=== PATIENT | female | born 1960 | race Caucasian/White ===

== ENCOUNTER 2024-06-18 14:04 | Outpatient (AMB) | payer MEDICARE, SELFPAY ==
--- NOTE | 2024-06-18 14:13 | MHC.OFFVIS ---
Vital Signs 06/18/24 14:20 Height 5 ft 7 in Weight 179 lb 8 oz BMI 28.1 BP 145/72 H Blood Pressure Location Rt brachial Position Sitting Pulse 70 Pulse Source Pulse Oximeter Pulse Oximetry (%) 97 Oxygen Delivery Method Room Air Intake Visit Reasons: Chronic Pain Allergies amoxicillin [From Augmentin] Allergy (Unknown, Verified 06/18/24 14:45) Anaphylaxis clavulanic acid [From Augmentin] Allergy (Unknown, Verified 06/18/24 14:45) Anaphylaxis lisinopril Allergy (Unknown, Verified 06/18/24 14:45) Unknown Penicillins Allergy (Unknown, Verified 06/18/24 14:45) Unknown prednisone Allergy (Unknown, Verified 06/18/24 14:45) steroid psychosis quetiapine [From Seroquel] Allergy (Unknown, Verified 06/18/24 14:45) Unknown HPI Comments Details: The patient is a 64-year-old female presenting with chronic low back pain, first initiating in [id number] due to a sacroiliac joint injury. Initial management at [facility] included SI injections and epidural steroid injections that were subsequently discontinued after evidence of neutropenia. Pain symptoms include radiating discomfort to the left buttock and groin with cramping, pinching, and locking sensations. Other associated symptoms include difficulty sleeping and chronic fatigue worsened by anxiety and depression, affecting her activities of daily living. Denies any fever or chills, unintentional weight loss or night sweats, weakness, bladder or bowel dysfunction or saddle anesthesia. Currently, she is getting over inner ear infection which causes her transient dizziness with bending down. Further complicating the clinical picture are complaints of restless leg syndrome worsened by medication adjustments in the hospital, and historical reliance on self-medication through alcohol which resolved in 2007. She also checked herself in to [facility] in the past for opioid dependence on Fentanyl patch and other opioids for 7 years. Her medical history includes lumbar degenerative disc disease, chronic low back pain, left SI joint pain, RLS, PAD, anxiety, depression, PTSD and insomnia, affecting sleep and psychological wellbeing. Prior radiographic studies indicated spinal changes, and her current management focuses on balancing pain relief without steroid injections, due to past adverse psychological reactions and neutropenia. She reports normal neutrophils levels with recent lab work through her PCP office. Patient reports hospitalizations started in 2018 due to chronic low back pain and neutropenia and since then she reports being hospitalized up to 20 times, with last stay in February 2024. She also reports surgical excision due to a very bad neutropenic skin ulcer with infection with necrosis in a private area per patient. - Onset and Timing: Initiated in [id number]. - Quality and Character: Cramping, pinching, and crushing. Pain is 3-10/10, worse with movements and least severe with resting or heat. - Primary Location: Left side above the lower back. - Areas of Radiation: Radiates to left buttock and groin. - Exacerbating Factors: Walking, turning over in bed, cold weather, bending, standing. - Relieving Factors: Heat pad, Duloxetine, Clonazepam, Oxycodone, Tylenol, Ibuprofen (rarely) - Functional Interference: Impaired sleep, exhaustion, limited mobility, reliance on sister for household tasks. Sometimes she uses cane or walker. - Affect: Pain leads to exhaustion, depression, and anxiety. - Analgesia: Currently using Oxycodone 10 mg; reports avoiding gabapentin. Pain levels interfere with sleep, and there is a desire for opioid-sparing therapies. - Adverse Effects: Historical adverse psychiatric reactions to steroids. - Activities of Daily Living: Restricted mobility and sleep; relies on external support for housework. - Aberrant Drug-Related Behaviors: Previously managed alcohol self-medication; ceased in 2007. History of opioid dependence (Fentanyl patch x7 years) with inpatient treatment in [facility]. [facility] Medical History (Updated 06/18/24 @ 15:29 by LENNOX Kahn) Neutropenia Panic attacks Anxiety Insomnia Type 2 diabetes mellitus PTSD (post-traumatic stress disorder) Hypertension Hyperlipidemia Chronic pain disorder Bipolar disorder Alcohol abuse Opioid dependence OCD (obsessive compulsive disorder) Surgical History (Updated 06/18/24 @ 15:29 by LENNOX Kahn) History of surgical removal of skin lesion Review of Systems Const Details: - Cardiovascular: Reports peripheral arterial disease. - Musculoskeletal: Reports pain exacerbated by movement; right leg shorter. - Neurological: Reports restless leg syndrome, prior managed with ropinirole, currently on clonazepam. - Psychological: Reports depression, anxiety, insomnia, restless leg syndrome. - Hematologic: Denies current neutropenia. - Sleep: Disturbed due to pain; reports severe fatigue. All systems reviewed & are unremarkable except as noted in HPI and below Physical Exam Vital Signs: Last Vital Signs Pulse 70 06/18/24 14:20 BP 145/72 H 06/18/24 14:20 Pulse Ox 97 06/18/24 14:20 Oxygen Delivery Method Room Air 06/18/24 14:20 BMI result Body Mass Index 28.1 General: Appears afebrile. No acute distress. Alert and oriented. Mood and affect appropriate. Follows and participates in conversation appropriately. Respiratory effort is unlabored. No cough. No nasal discharge. Able to transition from sit to stand unassisted. Ambulates with bilaterally normal heel strike and toe off. General: Yes no CVA tenderness Back/Spine/Pelvis Other: Patient is able to walk and stand on heels and tip toes with no difficulties demonstrating good motor tone. No limping. Can flex forward to 80-90 degrees, able to touch the floor and extend to 10-15 degrees before experiencing lumbar pain. Demonstrates 5/5 strength of quadriceps bilaterally as well as flexion/dorsiflexion of bilateral feet against resistance. 2+ pedal pulses bilaterally. Straight leg rise with dorsiflexion negative bilaterally. +2 patellar and achilles reflexes bilaterally. Facet loading test positive bilaterally. Andrea sign, Hay?s, Gaenslen, Pelvic compression and Stinchfield tests are positive on the left, equivocal on the right. Minimal groin pain with left I/E hip rotations. Valsalva maneuver negative. Noted discrepancy in leg length; right leg shorter. Back: no CVA tenderness Cervical Spine: cervical ROM normal, cervical muscular tenderness and No Cervical spine tenderness Thoracic/Lumbar Spine: thoracic and lumbar spine normal to inspection, No Thoracic/lumbar spine scar(s), Lasegue's sign negative, straight leg raise negative bilaterally, pain with thoraco-lumbar ROM, paraspinal muscle tenderness, thoraco-lumbar ROM limited, No thoracic spinal tenderness and lumbar spinal tenderness (L4-S1) Pelvis: buttock tenderness on the left and no sciatic notch tenderness Sacroiliac joints: bilaterally (left>right) tender to palpation Skin Other: Neuropenic skin lesions and ulcers at various healing stages of upper and lower extremities, no skin rash or lesions on back or torso. Extrem General: Yes capillary refill normal, Yes no clubbing, cyanosis or edema and Yes no calf tenderness Results Reviewed Results Reviewed: No imaging reports are available for review today. Assessment & Plan Assessment & Plan (1) Lumbar degenerative disc disease: Code(s): M51.369 - Other intervertebral disc degeneration, lumbar region without mention of lumbar back pain or lower extremity pain Category: Medical (2) Chronic sacroiliac joint pain: Code(s): M53.3 - Sacrococcygeal disorders, not elsewhere classified; G89.29 - Other chronic pain Category: Medical (3) Chronic low back pain: Code(s): M54.50 - Low back pain, unspecified; G89.29 - Other chronic pain Category: Medical (4) Opioid dependence: Code(s): F11.20 - Opioid dependence, uncomplicated Category: Medical Plan The plan includes updating imaging with x-rays of the sacroiliac joints and lumbar spine, potential insurance evaluation for radiofrequency ablation and pursuing diagnostic injections. We also reviewed neuromodulation, including Sprint PNS trial, patient is hesitant towards temporary or permanent implants, especially given recent history of neutropenia. Emphasis will be placed on non-steroid, opioid-sparing and non-opioid analgesia options considering the patient's adverse reaction to steroids. Maintaining Duloxetine and opioid therapy for pain and mood management continues per PCP, as does Clonazepam for psychiatric symptoms and restless leg syndrome. Review of [facility] records and coordination with primary care for ongoing management and potential Chiropractic therapy for leg length discrepancy will be pursued. All questions and concerns have been answered and patient agreed with the treatment plan. Follow up for xray results and sooner as needed. Patient was informed and verbally consented to the use of an ambient scribe for clinic note documentation during this visit. Orders: Orders XR lumbar spine 4V min Today G89.29 - Other chronic pain, M51.369 - Other intervertebral disc degeneration, lumbar region without mention of lumbar back pain or lower extremity pain, M53.3 - Sacrococcygeal disorders, not elsewhere classified, M54.50 - Low back pain, unspecified XR sacroiliac joint min 3V Today G89.29 - Other chronic pain, M51.369 - Other intervertebral disc degeneration, lumbar region without mention of lumbar back pain or lower extremity pain, M53.3 - Sacrococcygeal disorders, not elsewhere classified, M54.50 - Low back pain, unspecified Patient Instructions: - Schedule x-ray for sacroiliac joints and lumbar spine. - Continue current medications as prescribed. - Report any severe increase in pain or mobility restriction. - Engage in approved physical exercises and stretches. Consider Chiropractic therapy for leg discrepancy. - Use non-drug methods for pain relief such as heat pads. - Maintain regular hydration, sleep hygiene, well balanced diet and stress management. - Consult with your psychiatrist as planned to manage anxiety, depression, insomnia and high stress levels. - Follow up for xray results/[facility] records review and sooner as needed. Coding Level of Care Code New Pt Level 4 (47831) Complex EM visit Add On G2211 Diagnoses Lumbar degenerative disc disease M51.369 Chronic sacroiliac joint pain M53.3; G89.29 Chronic low back pain M54.50; G89.29 Opioid dependence F11.20
[2024-06-18 14:20] VITALS: BP 145/72; PULSE 70; O2SAT 97; BMI 28.1
== END 2024-06-18 14:52 | disposition home or self-care (01) ==
LOC: HO.PMC 14:05
PROVIDERS: PCP Internal Medicine; Referring Provider Physician Assistant Medical; Visit Provider Nurse Practitioner Family
DX: M51.369 Other intervertebral disc degeneration, lumbar region without mention of lumbar back pain or lower extremity pain (principal); M53.3 Sacrococcygeal disorders, not elsewhere classified; G89.29 Other chronic pain; M54.50 Low back pain, unspecified
CPT/HCPCS: 99204; G2211

== ENCOUNTER → 2024-06-18 14:04 | Outpatient (BNVA) | payer MEDICARE, SELFPAY | PROVIDERS: PCP Internal Medicine; Referring Provider Physician Assistant Medical; Visit Provider Nurse Practitioner Family | DX: G89.29 Other chronic pain (principal); M51.369 Other intervertebral disc degeneration, lumbar region without mention of lumbar back pain or lower extremity pain; M53.3 Sacrococcygeal disorders, not elsewhere classified; M54.50 Low back pain, unspecified; F11.20 Opioid dependence, uncomplicated | CPT/HCPCS: 99202 ==

== ENCOUNTER 2024-09-04 08:29 | Outpatient (REF) | payer MEDICARE, SELFPAY ==
--- NOTE | ~2024-09-04 | XR_ITS ---
EXAMINATION: XR LUMBAR SPINE 4 OR MORE VIEWS HISTORY: M51.369 - Other intervertebral disc degeneration, lumbar region without ... COMPARISON: There are no prior studies for comparison. FINDINGS: AP, lateral, bilateral oblique, and coned down views of the lumbar spine are submitted. Osseous mineralization is normal. Five nonrib-bearing lumbar vertebral bodies are identified, maintaining normal height and alignment without evidence of fracture or spondylolisthesis. There is diffuse moderate degenerative disc disease with disc space narrowing and osteophyte formation. There is osteoarthritis of the facet joints. There is calcification of the abdominal aorta. XR/XR lumbar spine 4V min IMPRESSION: Diffuse moderate degenerative disc disease. Electronically signed by: Dieudonne Nguyen MD 09/04/2024 09:46 AM EDT
--- NOTE | ~2024-09-04 | XR_ITS ---
EXAMINATION: XR SACROILIAC JOINT 3 OR MORE VIEWS HISTORY: M51.369 - Other intervertebral disc degeneration, lumbar region without ... COMPARISON: There are no prior studies available for comparison. FINDINGS: Three views of the bilateral sacroiliac joints are submitted. The joint spaces are maintained. No erosions are seen. There is degenerative disc disease of the lower lumbar spine. There are vascular calcifications. XR/XR sacroiliac joint min 3V IMPRESSION: Unremarkable examination of the sacroiliac joints. Electronically signed by: Dieudonne Nguyen MD 09/04/2024 09:47 AM EDT
== END 2024-09-04 08:30 | disposition home or self-care (01) ==
LOC: HO.LAB 08:29
PROVIDERS: PCP Internal Medicine; Referring Provider Physician Assistant Medical; Visit Provider Nurse Practitioner Family
DX: M51.369 Other intervertebral disc degeneration, lumbar region without mention of lumbar back pain or lower extremity pain (principal); M54.50 Low back pain, unspecified; G89.29 Other chronic pain; M53.3 Sacrococcygeal disorders, not elsewhere classified
CPT/HCPCS: 72110; 72202

== ENCOUNTER → 2024-09-04 08:41 | Outpatient (BNV) | payer MEDICARE, SELFPAY | PROVIDERS: PCP Internal Medicine; Referring Provider Physician Assistant Medical; Visit Provider Radiology Diagnostic Radiology | DX: M51.369 Other intervertebral disc degeneration, lumbar region without mention of lumbar back pain or lower extremity pain (principal) | CPT/HCPCS: 72110; 72202 ==